=== PATIENT | female | born 1970 | race Caucasian/White ===

== ENCOUNTER 2016-06-15 15:07 | Outpatient (CLI) | payer MEDICARE, OTHER | END 2016-06-15 15:08 | disposition home or self-care (01) | DX: Z12.31 Encounter for screening mammogram for malignant neoplasm of breast (principal) ==

== ENCOUNTER 2016-12-19 15:08 | Emergency (ER) | payer OTHER ==
[2016-12-19 15:13] VITALS: BP 118/76
[2016-12-19 15:29] LABS: BILIRUBIN,URINE NEGATIVE (NEGATIVE)
[2016-12-19 15:35] LABS: UA CHARGE (STRIP ONLY) YES; UR CULTURE IF IND NOT INDICATED
[2016-12-19] MEDS ORDERED: ONDANSETRON ODT 4 MG TABLET TL STA (16:02)
--- NOTE | 2016-12-19 16:04 | ED Physician Documentation ---
PD HPI ABD PAIN - Stated complaint Stated Complaint: POSSIBLE KIDNEY STONES - Chief complaint Chief Complaint: Abd Pain - History obtained from History obtained from: Patient - History of Present Illness Timing - onset: Other (For the last month this 46-year-old woman who has had kidney stones before and has required operative intervention for same has had left flank pain that waxes and wanes but is generally worsening and when she has it bad she feels like pacing and cannot get comfortable. It is worse at rest. She is nauseous and has been vomiting. 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 HEENT: Tonsil/Adenoidectomy - Present Medications Home Medications: Ambulatory Orders Medication Instructions Recorded Confirmed ARIPiprazole [Abilify] 5 mg PO DAILY 04/23/15 12/19/16 Levothyroxine [Synthroid] 100 mcg PO DAILY 04/23/15 12/19/16 Omeprazole [PriLOSEC] 20 mg PO DAILY 04/23/15 12/19/16 Atorvastatin [Lipitor] 10 mg PO DAILY 12/19/16 12/19/16 Lorazepam [Ativan] 1 mg PO TID PRN #10 tablet 12/19/16 Metoprolol Tartrate 50 mg PO BID 12/19/16 12/19/16 - Allergies Allergies/Adverse Reactions: Allergies Allergy/AdvReac Type Severity Reaction Status Date / Time meclizine HCl * Allergy Headache Verified 04/23/15 20:23 [From VertiCalm] taPE Allergy Unknown Uncoded 12/19/16 15:14 - Social History Does the pt smoke?: Yes Smoking Status: Current every day smoker Does the pt drink ETOH?: No Does the pt have substance abuse?: No - Immunizations Immunizations are current?: Yes PD ED PE NORMAL - Vitals Vital signs reviewed: Yes - General General: Alert and oriented X 3, Other (Pacing, uncomfortable) - Cardiac Cardiac: RRR, No murmur - Respiratory Respiratory: No respiratory distress, Clear bilaterally - Abdomen Abdomen: Soft, Non tender - Back Back: No CVA TTP, No spinal TTP - Extremities Extremities: No edema, No calf tenderness / cord - Neuro Neuro: Alert and oriented X 3, Normal speech - Psych Psych: Normal mood, Normal affect Results - Vitals Vitals: Vital Signs - 24 hr 12/19/16 15:11 Temperature 35.9 C L Heart Rate 84 Respiratory 18 Rate Blood Pressure 118/76 O2 Saturation 100 Oxygen O2 Source Room air - Labs Labs: Laboratory Tests 12/19/16 12/19/16 12/19/16 15:22 16:20 16:20 WBC 13.3 H RBC 4.17 L Hgb 12.3 Hct 37.2 MCV 89.3 MCH 29.6 MCHC 33.1 RDW 13.9 Plt Count 362 MPV 6.7 L Neut # 8.4 H Lymph # 3.3 [place] # 1.3 H Eos # 0.3 Baso # 0.1 Absolute Nucleated RBC 0.00 Nucleated RBCs 0.0 Sodium 139 Potassium 4.2 Chloride 105 Carbon Dioxide 27 Anion Gap 7.0 BUN 17 Creatinine 0.7 Estimated GFR (MDRD) 90 Glucose 93 Calcium 9.0 Total Bilirubin 0.4 AST 22 ALT 30 Alkaline Phosphatase 79 Total Protein 6.9 Albumin 3.7 Globulin 3.2 Albumin/Globulin Ratio 1.2 Lipase 39 Urine Color YELLOW Urine Clarity CLEAR Urine pH 6.0 Ur Specific [place] 1.025 Urine Protein NEGATIVE Urine Glucose (UA) NEGATIVE Urine Ketones NEGATIVE Urine Occult Blood NEGATIVE Urine Nitrite NEGATIVE Urine Bilirubin NEGATIVE Urine Urobilinogen 0.2 (NORMAL) Ur Leukocyte Esterase NEGATIVE Ur Microscopic Review NOT INDICATED Urine Culture Comments NOT INDICATED - Rads (name of study) CT KUB Radiology: EMP read contemporaneously (NAD) PD MEDICAL DECISION MAKING - ED course ED course: 46-year-old woman presents with back pain reminiscent of prior renal colic, however no hematuria or stone seen on CT. On further discussion she feels somewhat manic and would benefit from something to help her sleep which may be why she is restless with the pain. Departure - Departure Disposition: 01 Home, Self Care Clinical Impression: Back pain Qualifiers: Back pain location: low back pain Chronicity: acute Back pain laterality: left Sciatica presence: without sciatica Qualified Code(s): M54.5 - Low back pain Condition: Good Record reviewed to determine appropriate education?: Yes Instructions: ED Neck Back Pain General Prescriptions: Lorazepam [Ativan] 1 mg PO TID PRN #10 tablet PRN Reason: Anxiety Comments: Call your doctor to arrange a follow-up appointment, make the next available appointment. In the interim, return anytime if worse or if new symptoms develop.
[2016-12-19 16:28] LABS: BASOPHILS # (AUTO) 0.1 10^3/uL (0.0-0.1); BASOPHILS % (AUTO) 0.8 %; EOSINOPHILS # (AUTO) 0.3 10^3/uL (0.0-0.7); HCT - HEMATOCRIT 37.2 % (37.0-47.0); HGB - HEMOGLOBIN 12.3 g/dL (12.0-16.0); LYMPHOCYTES # (AUTO) 3.3 10^3/uL (1.5-3.5); LYMPHOCYTES % (AUTO) 24.7 %; MEAN CORPUSCULAR HEMOGLOBIN 29.6 pg (27.0-31.0); MEAN CORPUSCULAR HGB CONC 33.1 g/dL (32.0-36.0); MEAN CORPUSCULAR VOLUME 89.3 fL (81.0-99.0); MEAN PLATELET VOLUME 6.7 fL (7.9-10.8); MONOCYTES # (AUTO) 1.3 10^3/uL (0.0-1.0); MONOCYTES % (AUTO) 9.4 %; NEUTROPHILS # (AUTO) 8.4 10^3/uL (1.5-6.6); NEUTROPHILS % (AUTO) 63.1 %; RED BLOOD COUNT 4.17 10^6/uL (4.20-5.40); RED CELL DISTRIBUTION WIDTH 13.9 % (12.0-15.0); UNCORRECTED WHITE BLOOD COUNT 13.3 x10^3/uL; WHITE BLOOD COUNT 13.3 x10^3/uL (4.8-10.8)
[2016-12-19 16:42] LABS: ALBUMIN/GLOBULIN RATIO 1.2 (1.0-2.2); BILIRUBIN,TOTAL 0.4 mg/dL (0.2-1.0); CREATININE 0.7 mg/dL (0.4-1.0); POTASSIUM 4.2 mmol/L (3.5-5.0); TOTAL PROTEIN 6.9 g/dL (6.7-8.2)
[2016-12-19] MEDS ORDERED: ONDANSETRON ODT 4 MG TABLET ONE (16:43)
--- NOTE | 2016-12-19 16:53 | CT Preliminary Report ---
Exam: CT Abdomen/Pelvis W/O IMPRESSION: Negative noncontrast CT of the abdomen and pelvis. [facility] SITE ID: [id number]
--- NOTE | 2016-12-19 16:55 | CT Report ---
EXAM: CT ABDOMEN AND PELVIS (CT KUB) EXAM DATE: 12/19/2016 04:33 PM. CLINICAL HISTORY: L flank pain. COMPARISONS: 04/23/2015. TECHNIQUE: Routine axial helical CT imaging was performed through the abdomen and pelvis without IV c ontrast. Reconstructions: Coronal and sagittal. In accordance with CT protocol optimization, one or more of the following dose reduction techniques w ere utilized for this exam: automated exposure control, adjustment of mA and/or KV based on patient s ize, or use of iterative reconstructive technique. FINDINGS: Lung Bases: Unremarkable. Right Kidney/Ureter: No stones, hydronephrosis, or hydroureter. No perinephric fat stranding. Left Kidney/Ureter: No stones, hydronephrosis, or hydroureter. No perinephric fat stranding. Other Solid Organs: Noncontrast images of the solid organs are grossly unremarkable. Gallbladder/Bile Ducts: The gallbladder is contracted. There is cholelithiasis. No bile duct dilatati on. Peritoneal Cavity: No free fluid, free air or shahnaz adenopathy. Bowel is grossly unremarkable. Pelvic Organs: No bladder stones or wall thickening. Noncontrast images of the visualized pelvic orga ns are unremarkable. Vasculature: Unremarkable. Other: There is degenerative disease at the L4-L5 level. IMPRESSION: Negative noncontrast CT of the abdomen and pelvis. [facility] Referring Provider Line: [phone] SITE ID: [id number]
== END 2016-12-19 17:38 | disposition home or self-care (01) ==
LOC: ED 15:08
DX: M54.5 Low back pain (principal); Z87.442 Personal history of urinary calculi; Z87.11 Personal history of peptic ulcer disease; J44.9 Chronic obstructive pulmonary disease, unspecified; J45.909 Unspecified asthma, uncomplicated; E03.9 Hypothyroidism, unspecified; F17.200 Nicotine dependence, unspecified, uncomplicated
CPT/HCPCS: 36415; 74176; 80053; 81003; 83690; 85025; 99283; Q0162; 81001; 87086

== ENCOUNTER 2016-12-30 15:30 | Outpatient (CLI) | payer OTHER | END 2016-12-30 15:31 | disposition critical access hospital (66) | LOC: EMS 15:30 → MERGE 15:30 → EMS 15:31 | PROVIDERS: ATTEND Surgery | DX: R42 Dizziness and giddiness (principal) | CPT/HCPCS: A0425; A0427 ==

== ENCOUNTER 2016-12-30 16:00 | Emergency (ER) | payer MEDICARE, OTHER ==
[2016-12-30] MEDS ORDERED: SODIUM CHLORIDE 0.9% 1,000 ML IV ONE (16:57)
--- NOTE | 2016-12-30 17:05 | ED Physician Documentation ---
PD HPI SYNCOPE - Stated complaint Stated Complaint: AMS - Chief complaint Chief Complaint: Neuro - History obtained from History obtained from: Patient, EMS - History of Present Illness Witnessed: Witnessed Duration: Seconds Preceding symptoms: Light headed. No: Headache, Vision changes, Chest pain, Palpitations, Diaphoresis Associated symptoms: No: Headache, Vision changes, Diaphoresis, Dyspnea, Nausea / vomiting Contributing factors: Noxious stimulae (hair dye) Injury occurred: No: Fell, Head injury, Neck injury Pain level max: 0 Pain level now: 0 Similar symptoms before: Has not had sx before Recently seen: Not recently seen - Additional information Additional information: has not eaten or drank anything today. Patient was having her hair colored when she felt lightheaded and dizzy. She did pass out for a few seconds, now resolved. There was a report of possible slurred speech, but not witnessed by any medical personnel. No focal neurological deficits. No weakness or numbness. Review of Systems Ten Systems: 10 systems reviewed and negative Constitutional: denies: Fever, Chills Throat: denies: Sore throat Cardiac: denies: Chest pain / pressure Respiratory: denies: Cough GI: denies: Abdominal Pain, Nausea, Vomiting, Diarrhea Skin: denies: Rash Musculoskeletal: denies: Neck pain, Back pain Neurologic: denies: Headache PD PAST MEDICAL HISTORY - Past Medical History Past Medical History: Yes Cardiovascular: Hypertension, High cholesterol Neuro: CVA Psych: Anxiety, Bipolar disorder, Post traumatic stress disorder - Past Surgical History Past Surgical History: Yes General: Appendectomy 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 HEENT: Tonsil/Adenoidectomy - Present Medications Home Medications: Ambulatory Orders Medication Instructions Recorded Confirmed Atorvastatin Calcium 0 mg PO DAILY 12/30/16 12/30/16 Cephalexin [Keflex] 500 mg PO Q6H #28 capsule 12/30/16 Levothyroxine Sodium 0 mg PO DAILY 12/30/16 12/30/16 Metoprolol Tartrate 0 mg PO DAILY 12/30/16 12/30/16 - Allergies Allergies/Adverse Reactions: Allergies Allergy/AdvReac Type Severity Reaction Status Date / Time adhesive tape Allergy Unknown Verified 12/30/16 16:05 - Social History Does the pt smoke?: Yes Smoking Status: Current every day smoker Does the pt drink ETOH?: Yes Does the pt have substance abuse?: No - POLST Patient has POLST: No PD ED PE NORMAL - Vitals Vital signs reviewed: Yes - General General: Alert and oriented X 3, No acute distress - HEENT HEENT: PERRL, EOMI, Moist mucous membranes, Pharynx benign - Neck Neck: Supple, no meningeal sign - Cardiac Cardiac: RRR, No murmur, Strong equal pulses - Respiratory Respiratory: No respiratory distress, Clear bilaterally - Abdomen Abdomen: Soft, Non tender, Non distended - Derm Derm: Warm and dry, No rash - Extremities Extremities: Normal ROM s pain, No edema, No calf tenderness / cord - Neuro Neuro: Alert and oriented X 3, 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, No motor deficit, No sensory deficit, Normal speech - Psych Psych: Normal mood, Normal affect Results - Vitals Vitals: Vital Signs - 24 hr 12/30/16 12/30/16 12/30/16 16:01 16:19 16:30 Temperature 36.6 C Heart Rate 72 73 91 Respiratory 18 16 16 Rate Blood Pressure 103/71 93/65 104/69 O2 Saturation 100 96 97 12/30/16 12/30/16 12/30/16 17:15 18:04 18:35 Temperature Heart Rate 87 86 88 Respiratory 16 17 17 Rate Blood Pressure 114/69 109/51 L 104/68 O2 Saturation 97 99 97 12/30/16 18:49 Temperature Heart Rate 88 Respiratory 18 Rate Blood Pressure 130/107 H O2 Saturation 97 Oxygen O2 Source Room air - EKG (time done) 1613 Rate: Rate (enter#) (73) Rhythm: NSR [place]: Normal Intervals: Normal MI QRS: Normal Ischemia: Normal ST segments Other comments: Other comments (early R wave transition) - Labs Labs: Laboratory Tests 12/30/16 12/30/16 12/30/16 17:05 17:05 17:05 WBC 13.8 H RBC 4.25 Hgb 12.5 Hct 38.7 MCV 91.1 MCH 29.4 MCHC 32.3 RDW 14.4 Plt Count 335 MPV 6.9 L Neut # 10.4 H Lymph # 2.1 [place] # 1.0 Eos # 0.1 Baso # 0.1 Absolute Nucleated RBC 0.01 Nucleated RBCs 0.0 Sodium 140 Potassium 4.1 Chloride 107 Carbon Dioxide 28 Anion Gap 5.0 L BUN 11 Creatinine 0.8 Estimated GFR (MDRD) 77 L Glucose 96 Calcium 8.6 Total Bilirubin 0.4 AST 22 ALT 24 Alkaline Phosphatase 70 Troponin I < 0.04 Total Protein 6.8 Albumin 3.7 Globulin 3.1 Albumin/Globulin Ratio 1.2 Lipase 31 Urine Color Urine Clarity Urine pH Ur Specific [place] Urine Protein Urine Glucose (UA) Urine Ketones Urine Occult Blood Urine Nitrite Urine Bilirubin Urine Urobilinogen Ur Leukocyte Esterase Urine RBC Urine WBC Ur Squamous Epith Cells Urine Bacteria Ur Microscopic Review Urine Culture Comments 12/30/16 18:02 WBC RBC Hgb Hct MCV MCH MCHC RDW Plt Count MPV Neut # Lymph # [place] # Eos # Baso # Absolute Nucleated RBC Nucleated RBCs Sodium Potassium Chloride Carbon Dioxide Anion Gap BUN Creatinine Estimated GFR (MDRD) Glucose Calcium Total Bilirubin AST ALT Alkaline Phosphatase Troponin I Total Protein Albumin Globulin Albumin/Globulin Ratio Lipase Urine Color YELLOW Urine Clarity CLOUDY Urine pH 6.5 Ur Specific [place] 1.015 Urine Protein NEGATIVE Urine Glucose (UA) NEGATIVE Urine Ketones NEGATIVE Urine Occult Blood NEGATIVE Urine Nitrite POSITIVE H Urine Bilirubin NEGATIVE Urine Urobilinogen 0.2 (NORMAL) Ur Leukocyte Esterase MODERATE H Urine RBC 0-5 Urine WBC >25 H Ur Squamous Epith Cells FEW Squamous Urine Bacteria Many H Ur Microscopic Review INDICATED Urine Culture Comments INDICATED - Rads (name of study) cxr Radiology: Prelim report reviewed, EMP read contemporaneously, See rad report ( Normal single view chest. ) PD MEDICAL DECISION MAKING - ED course Complexity details: reviewed results, re-evaluated patient, considered differential, d/w patient ED course: Patient is a 46-year-old female who presents to the emergency department with lightheadedness and syncope today while having her hair colored. Appears to be a vasovagal episode. She states that normally she has low blood pressure, was given IV fluids and her blood pressure improved. She ate and drank in the emergency department and feels much better. Had not eaten or drank anything today. She is also found to have a UTI and will place on antibiotics for this. She is well-appearing, nontoxic. Afebrile. No sepsis. No pyelonephritis. NIH stroke scale of 0. No evidence of stroke or TIA. Patient counseled regarding signs and symptoms for which I believe and urgent re-evaluation would be necessary. Patient with good understanding of and agreement to plan and is comfortable going home at this time This document was made in part using voice recognition software. While efforts are made to proofread this document, sound alike and grammatical errors may occur. Departure - Departure Disposition: 01 Home, Self Care Clinical Impression: UTI (urinary tract infection) Qualifiers: Urinary tract infection type: acute cystitis Hematuria presence: without hematuria Qualified Code(s): N30.00 - Acute cystitis without hematuria Syncope Qualifiers: Syncope type: vasovagal syncope Qualified Code(s): R55 - Syncope and collapse Condition: Good Instructions: ED UTI Cystitis Female, ED Syncope Vasovagal Follow-Up: your,doctor in 1 week [Other] Prescriptions: Cephalexin [Keflex] 500 mg PO Q6H #28 capsule Comments: Take all antibiotics until gone. Return if you worsen. You do need to follow- up with your doctor within the next week for further evaluation and care. Discharge Date/Time: 12/30/16 18:57
[2016-12-30 17:13] LABS: BASOPHILS # (AUTO) 0.1 10^3/uL (0.0-0.1); BASOPHILS % (AUTO) 0.7 %; EOSINOPHILS # (AUTO) 0.1 10^3/uL (0.0-0.7); HCT - HEMATOCRIT 38.7 % (37.0-47.0); HGB - HEMOGLOBIN 12.5 g/dL (12.0-16.0); LYMPHOCYTES # (AUTO) 2.1 10^3/uL (1.5-3.5); LYMPHOCYTES % (AUTO) 15.6 %; MEAN CORPUSCULAR HEMOGLOBIN 29.4 pg (27.0-31.0); MEAN CORPUSCULAR HGB CONC 32.3 g/dL (32.0-36.0); MEAN CORPUSCULAR VOLUME 91.1 fL (81.0-99.0); MEAN PLATELET VOLUME 6.9 fL (7.9-10.8); MONOCYTES % (AUTO) 7.3 %; NEUTROPHILS # (AUTO) 10.4 10^3/uL (1.5-6.6); NEUTROPHILS % (AUTO) 75.4 %; RED BLOOD COUNT 4.25 10^6/uL (4.20-5.40); RED CELL DISTRIBUTION WIDTH 14.4 % (12.0-15.0); UNCORRECTED WHITE BLOOD COUNT 13.8 x10^3/uL; WHITE BLOOD COUNT 13.8 x10^3/uL (4.8-10.8)
[2016-12-30 17:26] LABS: ALBUMIN/GLOBULIN RATIO 1.2 (1.0-2.2); BILIRUBIN,TOTAL 0.4 mg/dL (0.2-1.0); CALCIUM 8.6 mg/dL (8.5-10.3); CREATININE 0.8 mg/dL (0.4-1.0); POTASSIUM 4.1 mmol/L (3.5-5.0); TOTAL PROTEIN 6.8 g/dL (6.7-8.2)
[2016-12-30 18:07] LABS: BILIRUBIN,URINE NEGATIVE (NEGATIVE); PH,URINE 6.5 PH (5.0-7.5); UA w/ MICROSCOPIC CHARGE YES
[2016-12-30 18:12] LABS: UR CULTURE IF IND INDICATED; WBC,URINE >25 /HPF (0-5)
--- NOTE | 2016-12-30 18:17 | XRAY Preliminary Report ---
Exam: XR Chest 1 View IMPRESSION: Normal single view chest. [facility] SITE ID: [id number]
--- NOTE | 2016-12-30 18:19 | XRAY Report ---
EXAM: CHEST RADIOGRAPHY EXAM DATE: 12/30/2016 05:57 PM. CLINICAL HISTORY: Syncope. COMPARISON: None. TECHNIQUE: 1 view. FINDINGS: Lungs/Pleura: No focal opacities evident. No pleural effusion. No pneumothorax. Mediastinum: Within exam limitations, cardiomediastinal contour is normal. Other: None. IMPRESSION: Normal single view chest. [facility] Referring Provider Line: [phone] SITE ID: [id number]
[2016-12-30] MEDS ORDERED: cefTRIAXone 1 GM VIAL IVP STA (18:25)
[2016-12-30] MEDS ORDERED: cefTRIAXone 1 GM VIAL ONE (18:32)
[2016-12-30 18:50] VITALS: BP 130/107
== END 2016-12-30 18:57 | disposition home or self-care (01) ==
LOC: MERGE 16:00 → ED 16:00
DX: N30.00 Acute cystitis without hematuria (principal); I10 Essential (primary) hypertension; Z96.659 Presence of unspecified artificial knee joint; F17.200 Nicotine dependence, unspecified, uncomplicated
CPT/HCPCS: 36415; 71010; 80053; 81001; 81003; 83690; 84484; 85025; 87077; 87086; 93005; 96374; 99284; 99285

== ENCOUNTER 2019-09-11 16:57 | Emergency (ER) | payer MEDICARE, OTHER ==
[2019-09-11 17:32] LABS: BILIRUBIN,URINE NEGATIVE (NEGATIVE); GLUCOSE, URINE (UA) NEGATIVE (NEGATIVE); KETONES,URINE (UA) NEGATIVE (NEGATIVE); LEUKOCYTE ESTERASE, URINE NEGATIVE (NEGATIVE); NITRITE,URINE NEGATIVE (NEGATIVE); OCCULT BLOOD,URINE NEGATIVE (NEGATIVE); PROTEIN,URINE NEGATIVE (NEGATIVE); UROBILINOGEN,URINE 0.2 (NORMAL) E.U./dL (NORMAL)
[2019-09-11 17:36] LABS: CLARITY,URINE CLEAR (CLEAR)
[2019-09-11] MEDS ORDERED: MORPHINE 2 MG/ML CARPUJECT IVP STA (17:36)
[2019-09-11] MEDS ORDERED: KETOROLAC 30 MG/ML VIAL IVP STA (17:36)
[2019-09-11 17:37] LABS: BASOPHILS # (AUTO) 0.1 10^3/uL (0.0-0.1); BASOPHILS % (AUTO) 0.9 %; EOSINOPHILS # (AUTO) 0.2 10^3/uL (0.0-0.7); EOSINOPHILS % (AUTO) 2.3 %; HGB - HEMOGLOBIN 13.5 g/dL (12.0-16.0); LYMPHOCYTES # (AUTO) 2.5 10^3/uL (1.5-3.5); LYMPHOCYTES % (AUTO) 28.1 %; MEAN CORPUSCULAR VOLUME 90.6 fL (81.0-99.0); MEAN PLATELET VOLUME 8.6 fL (7.9-10.8); MONOCYTES # (AUTO) 0.8 10^3/uL (0.0-1.0); MONOCYTES % (AUTO) 8.6 %; NEUTROPHILS # (AUTO) 5.3 10^3/uL (1.5-6.6); NEUTROPHILS % (AUTO) 59.6 %; PLT - PLATELET COUNT 361 10^3/uL (130-450); RED BLOOD COUNT 4.66 10^6/uL (4.20-5.40); RED CELL DISTRIBUTION WIDTH 13.2 % (12.0-15.0); WHITE BLOOD COUNT 8.8 x10^3/uL (4.8-10.8)
[2019-09-11] MEDS ORDERED: SODIUM CHLORIDE 0.9% 1,000 ML IV ONE (17:38)
--- NOTE | 2019-09-11 17:38 | ED Physician Documentation ---
PD HPI ABD PAIN - Stated complaint Stated Complaint: RT LOWER ABD/BACK PX - Chief complaint Chief Complaint: Abd Pain - History obtained from History obtained from: Patient (49 yo F presents with left lower back into left lower quadrant abdominal pain x 2 days. Started suddently 2 days ago and has been constant since but worsens periodically. Pain radiates into the left hip. No f, c, n,v,d, c, dysuria. Tolerating po, voiding per normal, 3 BMs today that were normal. Hx/o frequent UTIs, no kidney stones, no diverticulitis, no abd surgeries or chronic abd pain. Has not attempted any medication for this pain.) Review of Systems Constitutional: reports: Reviewed and negative Nose: reports: Reviewed and negative Throat: reports: Reviewed and negative Cardiac: reports: Reviewed and negative Respiratory: reports: Reviewed and negative GI: reports: Abdominal Pain. denies: Abdominal Swelling, Nausea, Vomiting, Constipation, Diarrhea, Hematemesis, Bloody / black stool : denies: Dysuria, Frequency, Hesitancy, Unable to Void, Incontinent, Hematur ia Skin: reports: Other (stung by a bee in the right neck per pt, pruritic) Musculoskeletal: reports: Reviewed and negative Neurologic: reports: Reviewed and negative PD PAST MEDICAL HISTORY - Past Medical History Past Medical History: Yes Cardiovascular: None, High cholesterol, Hypertension Respiratory: Asthma, COPD Endocrine/Autoimmune: HyPOthyroidism GI: Ulcers : Kidney stones HEENT: None Psych: Bipolar disorder, Anxiety, Post traumatic stress disorder - Past Surgical History Past Surgical History: Yes General: Appendectomy 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 HEENT: Tonsil/Adenoidectomy - Present Medications Home Medications: Ambulatory Orders Medication Instructions Recorded Confirmed ARIPiprazole [Abilify] 5 mg PO DAILY 04/23/15 12/19/16 Levothyroxine [Synthroid] 100 mcg PO DAILY 04/23/15 12/19/16 Omeprazole [PriLOSEC] 20 mg PO DAILY 04/23/15 12/19/16 Atorvastatin [Lipitor] 10 mg PO DAILY 12/19/16 12/19/16 Lorazepam [Ativan] 1 mg PO TID PRN #10 tablet 12/19/16 Metoprolol Tartrate 50 mg PO BID 12/19/16 12/19/16 Atorvastatin Calcium 0 mg PO DAILY 12/30/16 12/30/16 Cephalexin [Keflex] 500 mg PO Q6H #28 capsule 12/30/16 Levothyroxine Sodium 0 mg PO DAILY 12/30/16 12/30/16 Metoprolol Tartrate 0 mg PO DAILY 12/30/16 12/30/16 - Allergies Allergies/Adverse Reactions: Allergies Allergy/AdvReac Type Severity Reaction Status Date / Time adhesive tape Allergy Unknown Verified 09/11/19 17:11 meclizine HCl * Allergy Headache Verified 09/11/19 17:11 [From VertiCalm] taPE Allergy Unknown Uncoded 09/11/19 17:11 - Social History Does the pt smoke?: Yes Smoking Status: Current every day smoker Does the pt drink ETOH?: Yes Does the pt have substance abuse?: No - Immunizations Immunizations are current?: Yes - POLST Patient has POLST: No PD ED PE NORMAL - Vitals Vital signs reviewed: Yes - General General: Alert and oriented X 3, No acute distress, Well developed/nourished - HEENT HEENT: Atraumatic, Moist mucous membranes, Pharynx benign - Neck Neck: Supple, no meningeal sign, No JVD, Other (slight swelling from a bug bite on the right neck) - Cardiac Cardiac: RRR, No murmur, No gallop, No rub, Strong equal pulses - Respiratory Respiratory: No respiratory distress, Clear bilaterally - Abdomen Abdomen: Normal bowel sounds, Soft, Non distended, Other (tender left upper and lower quadrant and left lower back but not left cvat) - Back Back: No spinal TTP - Derm Derm: Normal color, Warm and dry - Neuro Neuro: Alert and oriented X 3 Motor: Obeys Commands Verbal: Oriented - Psych Psych: Normal mood, Normal affect Results - Vitals Vitals: Vital Signs - 24 hr 09/11/19 09/11/19 09/11/19 17:11 17:13 17:56 Temperature 36.5 C 36.5 C Heart Rate 104 H 104 H 93 Respiratory 16 16 24 Rate Blood Pressure 133/95 H 133/95 H 135/84 H O2 Saturation 98 98 99 Oxygen O2 Source Room air - Labs Labs: Laboratory Tests 09/11/19 09/11/19 09/11/19 17:12 17:28 17:28 WBC 8.8 RBC 4.66 Hgb 13.5 Hct 42.2 MCV 90.6 MCH 29.0 MCHC 32.0 RDW 13.2 Plt Count 361 MPV 8.6 Neut # (Auto) 5.3 Lymph # (Auto) 2.5 [place] # (Auto) 0.8 Eos # (Auto) 0.2 Baso # (Auto) 0.1 Absolute Nucleated RBC 0.00 Nucleated RBC % 0.0 Sodium 135 Potassium 3.6 Chloride 103 Carbon Dioxide 26 Anion Gap 6.0 BUN 11 Creatinine 0.6 Estimated GFR (MDRD) 106 Glucose 103 H Calcium 9.1 Total Bilirubin 0.3 AST 118 H ALT 214 H Alkaline Phosphatase 98 Total Protein 7.7 Albumin 4.1 Globulin 3.6 Albumin/Globulin Ratio 1.1 Lipase 42 Urine Color YELLOW Urine Clarity CLEAR Urine pH 6.0 Ur Specific [place] >=1.030 H Urine Protein NEGATIVE Urine Glucose (UA) NEGATIVE Urine Ketones NEGATIVE Urine Occult Blood NEGATIVE Urine Nitrite NEGATIVE Urine Bilirubin NEGATIVE Urine Urobilinogen 0.2 (NORMAL) Ur Leukocyte Esterase NEGATIVE Ur Microscopic Review NOT INDICATED Urine Culture Comments NOT INDICATED PD MEDICAL DECISION MAKING - ED course Complexity details: reviewed results, re-evaluated patient, considered differential, d/w patient ED course: Pt presented w/ llq pain and no other symptoms. Her physical exam was significant for tenderness. Labs were reassuring aside from mildly elevated AST/ALT. I obtained a CTAP due to persistent pain in the llq. The CT was negative for any acute pathology. Pt felt improvement w/ IVF, morphine, and toradol. Will send home w/ prn ibu/tylenol. I advised to return if fever/chills, vomiting, diarrhea, urinary sx or otherwise worsening condition. Pt notes understanding. Departure - Departure Disposition: 01 Home, Self Care Clinical Impression: Abdominal pain Qualifiers: Abdominal location: left lower quadrant Qualified Code(s): R10.32 - Left lower quadrant pain Condition: Good Instructions: Abdominal Pain Comments: You presents with left lower abdominal pain. Your labs, urine test, and CT were reassuring and there were no acute findings. Please continue prn ibuprofen and tylenol for pain. If you have new or worsening symptoms, return for re- evaluation.
[2019-09-11 17:58] VITALS: BP 135/84
[2019-09-11 18:04] LABS: ALBUMIN 4.1 g/dL (3.2-5.5); ALBUMIN/GLOBULIN RATIO 1.1 (1.0-2.2); BILIRUBIN,TOTAL 0.3 mg/dL (0.2-1.0); CALCIUM 9.1 mg/dL (8.5-10.3); CREATININE 0.6 mg/dL (0.4-1.0); TOTAL PROTEIN 7.7 g/dL (6.7-8.2)
[2019-09-11] MEDS ORDERED: IOVERSOL 320 100 ML VIAL IVP ONE ×2 (18:24→18:47)
--- NOTE | 2019-09-11 19:11 | CT Report ---
Reason: LLQ pain Procedure Date: 09/11/2019 Accession Number: [id number] / [id number] Procedure: CT - Abdomen/Pelvis W CPT Code: Final Report FULL RESULT: EXAM: CT ABDOMEN AND PELVIS EXAM DATE: 09/11/2019 06:44 PM. CLINICAL HISTORY: LLQ pain. COMPARISONS: ABDOMEN/PELVIS W/O 12/19/2016 4:27 PM. TECHNIQUE: Routine helical CT imaging was performed through the abdomen and pelvis. IV contrast: 100 cc OPTIRAY 320. Enteric contrast: No. Reconstructions: Coronal and sagittal. In accordance with CT protocol optimization, one or more of the following dose reduction techniques were utilized for this exam: automated exposure control, adjustment of mA and/or KV based on patient size, or use of iterative reconstructive technique. FINDINGS: ABDOMEN: Lung Bases: Incompletely included lower lungs are grossly clear Heart size is within normal limits. No basilar effusions. Liver: Unremarkable. Spleen: Unremarkable. Pancreas: Unremarkable. Gallbladder/Bile Ducts: Status post cholecystectomy. Biliary tree is normal caliber. Adrenal Glands: Unremarkable. Kidneys: No mass, calculi, or hydronephrosis. Tiny subcentimeter low attenuating lesions in the right kidney are too small to characterize, likely cyst. Peritoneum/Mesentery/Bowel: No free fluid, free air, or collection. No intestinal obstruction or inflammation. Appendix not identified. No pericecal inflammatory changes. Lymph nodes: No mesenteric, periportal, or retroperitoneal lymphadenopathy. Vasculature: Abdominal aorta is nonaneurysmal. Portal vein is patent. Hepatic veins are patent. PELVIS: The bladder is unremarkable for the degree of distention. Uterus is absent. No pelvic lymphadenopathy. Bones: No suspicious osseous lesions. IMPRESSION: No acute abnormalities. [facility]
== END 2019-09-11 19:28 | disposition home or self-care (01) ==
LOC: ED 16:57
DX: R10.32 Left lower quadrant pain (principal); F17.200 Nicotine dependence, unspecified, uncomplicated
CPT/HCPCS: 36415; 74177; 80053; 81003; 83690; 85025; 96361; 96374; 99284; Q9967; 81001; 87086

== ENCOUNTER 2019-12-31 19:52 | Emergency (ER) | payer MEDICARE ==
[2019-12-31 20:01] VITALS: BP 152/95
[2019-12-31] MEDS ORDERED: SULFAMETH/TRIMETH DS 800/160 MG TABLET PO STA (20:18)
[2019-12-31] MEDS ORDERED: HYDROcod/ACET 5/325 Prepack 4 PO STA (20:18)
--- NOTE | 2019-12-31 20:20 | ED Physician Documentation ---
PD HPI WOUND RECHECK - Stated complaint Stated Complaint: [facility] - Chief complaint Chief Complaint: Wound - Histroy obtained from History obtained from: Patient (She has a history of staph but not MRSA. She developed a painful lesion right on her chin today with some drainage. No fevers. None others.) Review of Systems Constitutional: reports: Reviewed and negative Eyes: reports: Reviewed and negative Nose: reports: Reviewed and negative Throat: reports: Reviewed and negative Cardiac: reports: Reviewed and negative PD PAST MEDICAL HISTORY - Past Medical History Cardiovascular: None, High cholesterol, Hypertension Respiratory: Asthma, COPD Endocrine/Autoimmune: HyPOthyroidism GI: Ulcers : Kidney stones HEENT: None Psych: Bipolar disorder, Anxiety, Post traumatic stress disorder - Past Surgical History Past Surgical History: Yes General: Appendectomy Ortho: Knee replacement /[employer]: Hysterectomy HEENT: Tonsil/Adenoidectomy - Present Medications Home Medications: Ambulatory Orders Medication Instructions Recorded Confirmed Levothyroxine [Synthroid] 100 mcg PO DAILY 04/23/15 12/31/19 Albuterol Sulf [Ventolin Hfa 1 - 2 puffs INH Q4HR PRN 12/31/19 12/31/19 Inhaler] Sulfamethoxazole/Trimethoprim 1 each PO BID 7 Days #14 tablet 12/31/19 [Sulfamethoxazole-Tmp Ds Tablet] - Allergies Allergies/Adverse Reactions: Allergies Allergy/AdvReac Type Severity Reaction Status Date / Time adhesive tape Allergy Unknown Verified 12/31/19 19:58 [email or web address] [From Chantix] Allergy Rash Verified 12/31/19 20:09 - Social History Does the pt smoke?: Yes Smoking Status: Current every day smoker Does the pt drink ETOH?: Yes Does the pt have substance abuse?: No - Immunizations Immunizations are current?: Yes - POLST Patient has POLST: No PD ED PE NORMAL - Vitals Vital signs reviewed: Yes - General General: Alert and oriented X 3, No acute distress - HEENT HEENT: Other (There is a small pointed and draining abscess right in the middle of the chin. No intraoral extension. No trismus. Bedside ultrasound does not demonstrate a significant fluid pocket.) - Neck Neck: Supple, no meningeal sign, No bony TTP - Neuro Neuro: Alert and oriented X 3, Normal speech Results - Vitals Vitals: Vital Signs - 24 hr 12/31/19 19:58 Temperature 36.7 C Heart Rate 103 H Respiratory 14 Rate Blood Pressure 152/95 H O2 Saturation 100 Oxygen O2 Source Room air PD MEDICAL DECISION MAKING - ED course ED course: She has a very small abscess on her chin. We discussed incision and drainage and she would like to trial antibiotics first. Since there is an insignificant fluid pocket on ultrasound this is not unreasonable. Departure - Departure Disposition: 01 Home, Self Care Clinical Impression: Abscess Condition: Good Record reviewed to determine appropriate education?: Yes Instructions: ED Staph Infec Abx Tx Only Prescriptions: Sulfamethoxazole/Trimethoprim [Sulfamethoxazole-Tmp Ds Tablet] 1 each PO BID 7 Days #14 tablet Comments: Many lesions like this will require incision and drainage, if it worsens despite the antibiotics or persist please return for reevaluation. Also return if you run a fever. We are performing a wound culture, the results should be done in 48-72 hours. If antibiotic change is necessary we will call you. Return if worse in the meantime, especially if you develop increased pain, fevers, cannot keep down the medication. Otherwise follow-up with your physician in approximately 2-3 days.
== END 2019-12-31 20:47 | disposition home or self-care (01) ==
LOC: ED 19:52
DX: L02.01 Cutaneous abscess of face (principal); F17.200 Nicotine dependence, unspecified, uncomplicated
CPT/HCPCS: 87070; 87181; 87205; 99283; A9270